=== PATIENT | female | born 1985 | race Caucasian/White ===

== ENCOUNTER 2019-01-07 09:48 | Outpatient (CLI) | payer BC ==
--- NOTE | 2019-01-07 12:21 | RAD ---
BARIUM SWALLOW ESOPHOGRAM: HISTORY: Evaluation for LAP band. COMPARISON: None. FINDINGS: The patient was brought to the fluoroscopy suite. All questions were answered. The gastric band phi angle is normal. The patient was administered gas-forming crystals and thick liquid barium. Primary and secondary per istalsis was normal with the patient in the standing position. No significant reflux. There is narr owing of the GE junction at the LAP band as expected. When the patient is put in the DAI position, there is a small hiatal hernia through the LAP band with tertiary contractions. IMPRESSION: Normal appearance of the lumen of the LAP band which is narrowed as expected. POS: TEJ
== END 2019-01-07 09:49 | disposition home or self-care (01) ==
LOC: RAD 09:48
PROVIDERS: ATTEND Surgery
DX: Z48.815 Encounter for surgical aftercare following surgery on the digestive system (principal); Z98.84 Bariatric surgery status
CPT/HCPCS: 74220